=== PATIENT | male | born 1990 | race African-American/Black ===

== ENCOUNTER 2019-06-08 13:19 | Emergency (ER) | payer SELFPAY ==
[~2019-06-08] VITALS: Wt 81.8 kg
[~2019-06-08 13:19] MED LIST: HYDR-4011 PO; ONDA8TAB14 PO
[2019-06-08 13:20] VITALS: Wt 81.8 kg
[2019-06-08] MEDS ORDERED: morphine 2 MG INJ IV STA (14:05)
[2019-06-08] MEDS ORDERED: KETOROLAC 30 MG INJ IV STA (14:05)
[2019-06-08] MEDS ORDERED: SOD CHLORIDE 0.9% 1,000 ML IV STA (14:05)
[2019-06-08] MEDS ORDERED: ONDANSETRON 4 MG INJ IV STA (14:05)
--- NOTE | 2019-06-08 14:11 | ERD ---
ER Documentation Chief Complaint Chief Complaint abd pain, n/v/d, actively wretching in triage HPI 29-year-old male presents with complaint of nausea, vomiting, diarrhea since 2 AM last night. States he ate [employer] and thinks he got food poisoning. States that he has similar episode 4 months ago when he ate food from a [employer] and had similar symptoms for which she went to the ER. States that they did a CT scan then but he was not told the results but was discharged shortly afterwards. Pain is mostly upper right quadrant. Vomitus described as as nonbilious and nonbloody. Denies any bloody stools, history of gallstones, fevers, chills, testicular pain. ROS All systems reviewed and are negative except as per history of present illness. Medications Home Meds Active Scripts Hydrocodone/Acetaminophen ([place] 5-325 Tablet) 1 Each Tablet, 1-2 TAB PO Q6H PRN for PAIN, #10 TAB Prov:NOEMIALYSIAYUKI RUFFIN 06/08/19 Ondansetron (Ondansetron Odt) 8 Mg Tab.rapdis, 8 MG PO Q6H PRN for NAUSEA AND/OR VOMITING, #15 TAB Prov:YUKI ALEJANDRO 06/08/19 FmHx Family History: No diabetes, No coronary disease, No other Physical Exam Vitals Vital Signs Date Temp Pulse Resp B/P (MAP) Pulse Ox O2 O2 Flow FiO2 Time Delivery Rate 06/08/19 59 20 135/70 99 Room Air 15:54 (91) 06/08/19 98.9 65 20 124/74 99 13:20 (91) Physical Exam Const: No acute distress Head: Atraumatic Eyes: Normal Conjunctiva ENT: Normal External Ears, Nose and Mouth. Neck: Full range of motion. No meningismus. Resp: Clear to auscultation bilaterally Cardio: Regular rate and rhythm, no murmurs Abd: Tender to palpation upper right quadrant. Otherwise soft nontender, nondistended. Negative mcburneys. Normal bowel sounds. Skin: No petechiae or rashes Back: No midline or flank tenderness Ext: No cyanosis, or edema Neur: Awake and alert Psych: Normal Mood and Affect Result Diagram: 06/08/19 1425 06/08/19 1425 Results 24 hrs Laboratory Tests Test 7/17/19 14:25 White Blood Count 12.6 10^3/ul Red Blood Count 5.58 10^6/ul Hemoglobin 15.6 g/dl Hematocrit 46.2 % Mean Corpuscular Volume 82.8 fl Mean Corpuscular Hemoglobin 28.0 pg Mean Corpuscular Hemoglobin Concent 33.8 g/dl Red Cell Distribution Width 13.2 % Platelet Count 272 10^3/UL Mean Platelet Volume 10.0 fl Immature Granulocytes % 0.600 % Neutrophils % 86.0 % Lymphocytes % 8.9 % Monocytes % 4.3 % Eosinophils % 0.0 % Basophils % 0.2 % Nucleated Red Blood Cells % 0.0 /100WBC Immature Granulocytes # 0.080 10^3/ul Neutrophils # 10.9 10^3/ul Lymphocytes # 1.1 10^3/ul Monocytes # 0.5 10^3/ul Eosinophils # 0.0 10^3/ul Basophils # 0.0 10^3/ul Nucleated Red Blood Cells # 0.0 10^3/ul Urine Color YELLOW Urine Clarity CLEAR Urine pH 8.0 Urine Specific [place] 1.029 Urine Ketones 2+ mg/dL Urine Nitrite NEGATIVE mg/dL Urine Bilirubin NEGATIVE mg/dL Urine Urobilinogen NEGATIVE mg/dL Urine Leukocyte Esterase NEGATIVE Laci/ul Urine Microscopic RBC 3 /HPF Urine Microscopic WBC 0 /HPF Urine Mucus MANY /HPF Urine Hemoglobin NEGATIVE mg/dL Urine Glucose NEGATIVE mg/dL Urine Total Protein 1+ mg/dl Sodium Level 145 mmol/L Potassium Level 4.1 mmol/L Chloride Level 104 mmol/L Carbon Dioxide Level 26 mmol/L Anion Gap 15 Blood Urea Nitrogen 11 mg/dl Creatinine 0.93 mg/dl Est Glomerular Filtrat Rate mL/min > 60 mL/min Glucose Level 146 mg/dl Calcium Level 10.4 mg/dl Total Bilirubin 0.7 mg/dl Direct Bilirubin 0.00 mg/dl Indirect Bilirubin 0.7 mg/dl Aspartate Amino Transf (AST/SGOT) 45 IU/L Alanine Aminotransferase (ALT/SGPT) 43 IU/L Alkaline Phosphatase 111 IU/L Total Protein 8.8 g/dl Albumin 5.0 g/dl Globulin 3.80 g/dl Albumin/Globulin Ratio 1.31 Lipase 42 U/L Current Medications Medications Dose Sig/Eileen Start Time Status Last (Trade) Ordered Route PRN Stop Time Admin Dose Reason Admin Sodium 1,000 ml @ Q1H STAT 06/08/19 DC 06/08/19 Chloride 1,000 mls/hr IV 14:05 14:27 06/08/19 15:04 Morphine 2 mg ONCE STAT 06/08/19 DC 06/08/19 Sulfate IV 14:05 14:28 (morphine) 06/08/19 14:09 Ondansetron 4 mg ONCE STAT 06/08/19 DC 06/08/19 HCl (Zofran IV 14:05 14:28 Inj) 06/08/19 14:09 Ketorolac 30 mg ONCE STAT 06/08/19 DC 06/08/19 Tromethamine IV 14:05 14:28 (Toradol) 06/08/19 14:09 Procedures/MDM DIAGNOSTIC IMAGING REPORT Patient: VANITA JUAREZ : 1990 Age: 29 Sex: M MR #: [id number] DOS: 06/08/19 1405 Ordering MD: YUKI ALEJANDRO Location: [facility] Room/Bed: PROCEDURE: US Abdomen. CLINICAL INDICATION: abdominal pain TECHNIQUE: Multiple real-time images were acquired of the patient's right upper quadrant abdomen and retroperitoneum utilizing a high resolution transducer. COMPARISON: None FINDINGS: The liver demonstrates increased echogenicity. The liver is normal in size and no focal solid lesions are seen. The liver measures 13.5 cm in length. The portal vein is patent with normal direction of flow. No intrahepatic biliary dilatation is seen. No gallstones are identified within the gallbladder. There is no pericholecystic fluid or gallbladder wall thickening. The common bile duct measures 5 mm in maximal dimension. The visualized portions of the pancreas are unremarkable. The tail of the pancreas is not seen. No free fluid is identified. The right kidney is normal in size, and demonstrate normal echogenicity and cortical thickness. The right kidney measures 10.3 cm in long dimension. There is no evidence of hydronephrosis. There are no kidney stones. RPTAT: AA IMPRESSION: Fatty infiltration of the liver. .Jovani Yañez MD, Date Time Electronically viewed and signed by .Jovani Yañez MD, on 06/08/2019 14:45 .S/ MDM: Patient was given IV fluids, pain medication, Zofran in the ER and symptoms were completely resolved. There is very little clinical evidence of appendicitis at this time including no fevers, anorexia, or right lower quadrant tenderness. Presentation consistent with gastroenteritis. Given presentation, patient advised to return in 24 hours for repeat exam. Patient agreed to do so. I have low suspicion for acute coronary syndrome, AAA, mesenteric ischemia, lower lobe pneumonia, DKA, bowel perforation, cholecystitis, choledocholithiasis, ascending cholangitis, hepatic abscess, pancreatitis, PUD, splenic rupture, diverticulitis, pyelonephritis, nephrolithiasis, appendicitis, testicular torsion. At this time, patient is stable for discharge and outpatient management. I have instructed the patient to follow-up with his/her primary care physician in 1-2 days. I have discussed with the patient the possibility of needing to see a specialist for further workup and imaging studies if symptoms persist. I have instructed the patient to promptly return to the ER for any new or worsening symptoms including but not limited to increased pain, fever, nausea, vomiting, weakness or LOC. The patient and/or family expressed understanding of and agreement with this plan. All questions were answered. Home care instructions were provided. DISCLAIMER: Inadvertent spelling and grammatical errors are likely due to EHR/dictation software use and do not reflect on the overall quality of patient care. Also, please note that the electronic time recorded on this note does not necessarily reflect the actual time of the patient encounter. Departure Diagnosis: Primary Impression: Gastroenteritis Condition: Naima NOEMIALYSIALALYYUKI Jun 08, 2019 14:11
[2019-06-08 15:54] VITALS: BP 135/70; PULSE 59; RESP 20
== END 2019-06-08 15:50 | disposition home or self-care (01) ==
LOC: FTE 13:19
DX: K52.9 Noninfective gastroenteritis and colitis, unspecified (principal)
CPT/HCPCS: 36415; 76705; 80053; 81001; 83690; 85025; 96374; 96375; 99285; J1885; J2270; J2405; J7030